=== PATIENT | male | born 1990 | race Caucasian/White ===

== ENCOUNTER → 2020-10-15 | Outpatient (CLI) | payer BC ==
[2020-10-15 10:18] LABS: Basophils % (A) 1 %; Eosinophils # (A) 0.2 k/uL (0-0.7); Eosinophils % (A) 3 %; HCT 44.8 % (39.0-53.0); HGB 14.9 gm/dL (13.0-17.5); Lymphocytes # (A) 1.6 k/uL (1.0-4.8); Lymphocytes % (A) 31 %; MCHC 33.1 g/dL (31.0-37.0); MCV 84.5 fL (80.0-100.0); Mean Platelet Volume 7.6; Monocytes # (A) 0.3 k/uL (0-1.0); Monocytes % (A) 6 %; Neutrophils % (A) 57 %; Platelet Count 195 k/uL (150-450); RDW 12.1 % (11.5-15.5); WBC 5.2 k/uL (3.8-10.6)
[2020-10-15 11:22] LABS: Erythrocyte Sedimentation Rate 3 mm/hr (0-15)
[2020-10-15 16:12] LABS: Cyclic Citrull Pep IgG Unit 0.5 U/mL; Cyclic Citrullinated Pep IgG NEGATIVE (NEGATIVE)
[2020-10-15 17:29] LABS: Hemoglobin A1C 5.4 % (4.0-6.0)
[2020-10-15 19:57] LABS: ALT 32 U/L (10-49); AST 26 U/L (14-35); Albumin/Globulin Ratio 2.04 (1.60-3.17); Alkaline Phosphatase 54 U/L (41-126); C Reactive Protein <0.4 mg/dL (0.0-0.8); Calcium 9.4 mg/dL (8.7-10.3); Chloride 104 mmol/L (96-109); Chol/HDL Ratio 3.88; Cholesterol 225 mg/dL (0-200); Globulin 2.3 g/dL (1.6-3.3); Glucose 86 mg/dL (70-110); LDL Cholesterol,Calculated 142.2 mg/dL (0.0-131.0); Non-African American GFR(CKD) 66.5 (60.0-200.0); Potassium 4.4 mmol/L (3.5-5.5); Rheumatoid Factor, Qnt 8 IU/mL (0-15); Sodium 138 mmol/L (135-145); Total Bilirubin 0.8 mg/dL (0.2-1.2)
== END | disposition home or self-care (01) ==
LOC: LABWHC1 09:43
PROVIDERS: ATTEND Family Medicine
DX: Z00.01 Encounter for general adult medical examination with abnormal findings (principal); E78.5 Hyperlipidemia, unspecified; M25.521 Pain in right elbow
CPT/HCPCS: 36415; 80053; 80061; 83036; 84439; 84443; 85025; 85652; 86038; 86140; 86200; 86431

== ENCOUNTER → 2021-02-09 | Outpatient (CLI) | payer BC ==
[2021-02-09 15:21] LABS: Basophils # (A) 0.04 X 10*3/uL (0.00-0.10); Basophils % (A) 0.9 %; Eosinophils # (A) 0.17 X 10*3/uL (0.04-0.35); Eosinophils % (A) 3.9 %; HCT 44.2 % (39.6-50.0); HGB 14.4 g/dL (13.0-17.0); Lymphocytes # (A) 1.69 X 10*3/uL (0.90-5.00); Lymphocytes % (A) 38.4 %; MCH 27.7 pg (27.0-32.0); MCHC 32.6 g/dL (32.0-37.0); MCV 85.2 fL (80.0-97.0); Mean Platelet Volume 11.4 fL (9.5-12.2); Monocytes # (A) 0.42 X 10*3/uL (0.20-1.00); Monocytes % (A) 9.5 %; Neutrophils # (A) 2.04 X 10*3/uL (1.80-7.70); Neutrophils % (A) 46.4 %; Platelet Count 203 X 10*3/uL (140-440); RBC 5.19 X 10*6/uL (4.40-5.60); RDW 11.9 % (11.5-14.5)
[2021-02-09 19:26] LABS: African American GFR (CKD) 92.8 (60.0-200.0); Albumin 4.6 g/dL (3.80-4.90); Anion Gap 11.4 mmol/L (4.00-12.00); Calcium 9.4 mg/dL (8.7-10.3); Carbon Dioxide 25.6 mmol/L (21.6-31.8); Chol/HDL Ratio 4.65; Globulin 2.3 g/dL (1.6-3.3); Non-African American GFR(CKD) 80.1 (60.0-200.0); Potassium 4.2 mmol/L (3.5-5.5); Total Bilirubin 0.9 mg/dL (0.2-1.2); Total Protein 6.9 g/dL (6.2-8.2)
== END | disposition home or self-care (01) ==
LOC: LABWHC1 07:53
PROVIDERS: ATTEND Family Medicine
DX: E78.5 Hyperlipidemia, unspecified (principal)
CPT/HCPCS: 36415; 80053; 80061; 85025

== ENCOUNTER → 2021-07-31 | Outpatient (CLI) | payer BC ==
[2021-07-31 11:50] LABS: Basophils # (A) 0.05 X 10*3/uL (0.00-0.10); Basophils % (A) 0.9 %; Eosinophils # (A) 0.13 X 10*3/uL (0.04-0.35); Eosinophils % (A) 2.3 %; HCT 45.6 % (39.6-50.0); Lymphocytes % (A) 28.5 %; MCHC 32.9 g/dL (32.0-37.0); MCV 85.1 fL (80.0-97.0); Mean Platelet Volume 10.7 fL (9.5-12.2); Monocytes % (A) 8.9 %; Neutrophils % (A) 58.9 %; Platelet Count 203 X 10*3/uL (140-440); RBC 5.36 X 10*6/uL (4.40-5.60); RDW 11.7 % (11.5-14.5); WBC 5.61 X 10*3/uL (4.50-10.00)
[2021-07-31 13:03] LABS: LDL Cholesterol,Calculated 79.7 mg/dL (0.0-131.0); VLDL Calculation 18.1 mg/dL (5.00-40.00)
[2021-07-31 19:38] LABS: African American GFR (CKD) 128.5 (60.0-200.0); Albumin 4.6 g/dL (3.8-4.9); Albumin/Globulin Ratio 1.97 (1.60-3.17); Anion Gap 11.7 mmol/L (4.00-12.00); BUN/Creat Ratio 20.5 Ratio (12.00-20.00); Blood Urea Nitrogen 18.8 mg/dL (9.0-27.0); Calcium 9.2 mg/dL (8.7-10.3); Chol/HDL Ratio 2.71 Ratio; Globulin 2.3 g/dL (1.6-3.3); HDL Cholesterol 57.2 mg/dL (40.00-60.00); Non-African American GFR(CKD) 110.9 (60.0-200.0); Potassium 4.6 mmol/L (3.5-5.5); T4, Free (Free Thyroxine) 1.26 ng/dL (0.800-1.800); Total Bilirubin 0.5 mg/dL (0.30-1.20); Total Protein 6.9 g/dL (6.2-8.2); Triglycerides 90.5 mg/dL (0.00-149.00)
== END | disposition home or self-care (01) ==
LOC: LABWHC1 08:54
PROVIDERS: ATTEND Family Medicine
DX: Z00.01 Encounter for general adult medical examination with abnormal findings (principal); E78.5 Hyperlipidemia, unspecified
CPT/HCPCS: 36415; 80053; 80061; 83036; 84439; 84443; 85025

== ENCOUNTER → 2022-10-20 | Outpatient (CLI) | payer BC ==
--- NOTE | 2022-10-20 09:30 | MR ---
EXAMINATION TYPE: MR lumbar spine wo con DATE OF EXAM: 10/20/2022 COMPARISON: NONE HISTORY: LOW BACK PAIN for 4 to 5 years. TECHNIQUE: Multiplanar, multisequence imaging of the lumbar spine is performed without IV contrast. FINDINGS: Sagittal images of the lumbar spine show vertebral body heights and alignment to appear sat isfactory. The intervertebral discs demonstrate normal heights and hydration. The conus medullaris i s normal in position and signal ending at superior L1 level. The bone marrow signal intensity is wit hin normal limits. Axial images show mild facet arthropathy L3-L4 through the L5-S1 levels. Spinal canal is preserved. B ilateral neural foramina remain patent. No large disc herniation on axial images. Paraspinal muscle b ulk is maintained. IMPRESSION: Mild facet arthropathy in the mid to lower lumbar spine. No significant focal disc hernia tion.
== END | disposition home or self-care (01) ==
LOC: RADMRIMAIN 08:06
PROVIDERS: ATTEND Family Medicine
DX: M47.816 Spondylosis without myelopathy or radiculopathy, lumbar region (principal)
CPT/HCPCS: 72148

== ENCOUNTER → 2023-03-14 | Outpatient (CLI) | payer BC ==
[2023-03-14 14:19] LABS: ALT 53 U/L (10-49); AST 32 U/L (14-35); Albumin 4.4 g/dL (3.8-4.9); Albumin/Globulin Ratio 2.06 (1.60-3.17); Alkaline Phosphatase 58 U/L (41-126); BUN/Creat Ratio 17.87 Ratio (12.00-20.00); Blood Urea Nitrogen 19.3 mg/dL (9.0-27.0); Calcium 9.4 mg/dL (8.7-10.3); Carbon Dioxide 25.2 mmol/L (20.0-27.5); Chloride 107 mmol/L (96-109); Chol/HDL Ratio 2.15 Ratio; Globulin 2.1 g/dL (1.6-3.3); Glucose 79 mg/dL (70-110); LDL Cholesterol,Calculated 51.6 mg/dL (0.0-131.0); Non-African American GFR(CKD) 89.7 (60.0-200.0); Potassium 4.3 mmol/L (3.5-5.5); Sodium 143 mmol/L (135-145); Total Protein 6.5 g/dL (6.2-8.2); VLDL Calculation 11.06 mg/dL (5.00-40.00)
== END | disposition home or self-care (01) ==
LOC: LABWHC1 07:20
PROVIDERS: ATTEND Family Medicine
DX: E78.5 Hyperlipidemia, unspecified (principal)
CPT/HCPCS: 36415; 80053; 80061

== ENCOUNTER → 2023-11-02 | Outpatient (CLI) | payer OTHER ==
[2023-11-02 11:14] LABS: Basophils # (A) 0.04 X 10*3/uL (0.00-0.10); Basophils % (A) 0.9 %; Eosinophils # (A) 0.18 X 10*3/uL (0.04-0.35); HCT 44.9 % (39.6-50.0); HGB 14.6 g/dL (13.0-17.0); Lymphocytes # (A) 1.79 X 10*3/uL (0.90-5.00); Lymphocytes % (A) 39.9 %; MCH 27.7 pg (27.0-32.0); MCHC 32.5 g/dL (32.0-37.0); Mean Platelet Volume 10.8 FL (9.5-12.2); Monocytes # (A) 0.42 X 10*3/uL (0.20-1.00); Monocytes % (A) 9.4 %; NRBC Per 100 WBC 0 X 10*3/uL (0.00-0.01); Neutrophils # (A) 2.04 X 10*3/uL (1.80-7.70); Neutrophils % (A) 45.4 %; Platelet Count 218 X 10*3/uL (140-440); RBC 5.28 X 10*6/uL (4.40-5.60); RDW 11.7 % (11.5-14.5); WBC 4.49 X 10*3/uL (4.50-10.00)
[2023-11-02 11:40] LABS: ALT 30 U/L (10-49); AST 27 U/L (14-35); Albumin 4.6 g/dL (3.8-4.9); Albumin/Globulin Ratio 1.77 Ratio (1.60-3.17); Alkaline Phosphatase 63 U/L (41-126); Calcium 9.6 mg/dL (8.7-10.3); Carbon Dioxide 28.6 mmol/L (21.6-31.8); Chloride 101 mmol/L (96-109); Chol/HDL Ratio 2.84 Ratio; Globulin 2.6 g/dL (1.6-3.3); Glucose 93 mg/dL (70-110); LDL Cholesterol,Calculated 112.2 mg/dL (0.0-131.0); Potassium 4.7 mmol/L (3.5-5.5); Sodium 139 mmol/L (135-145); T4, Free (Free Thyroxine) 1.22 ng/dL (0.80-1.80); Total Bilirubin 0.5 mg/dL (0.3-1.2); Total Protein 7.2 g/dL (6.2-8.2); VLDL Calculation 14.86 mg/dL (5.00-40.00)
== END | disposition home or self-care (01) ==
LOC: LABWHC1 08:35
PROVIDERS: ATTEND Family Medicine
DX: Z00.01 Encounter for general adult medical examination with abnormal findings (principal); E78.5 Hyperlipidemia, unspecified; R73.03 Prediabetes
CPT/HCPCS: 36415; 80053; 80061; 83036; 83525; 84439; 84443; 85025

== ENCOUNTER → 2024-10-05 | Outpatient (CLI) | payer OTHER ==
[2024-10-05 13:30] LABS: Basophils % (A) 1.6 %; Eosinophils # (A) 0.25 X 10*3/uL (0.04-0.35); Eosinophils % (A) 3.9 %; HCT 44.4 % (39.6-50.0); HGB 14.8 g/dL (13.0-17.0); Lymphocytes # (A) 2.61 X 10*3/uL (0.90-5.00); Lymphocytes % (A) 41.1 %; MCH 27.3 pg (27.0-32.0); MCHC 33.3 g/dL (32.0-37.0); MCV 81.9 FL (80.0-97.0); Mean Platelet Volume 10.3 FL (9.5-12.2); Monocytes # (A) 0.47 X 10*3/uL (0.20-1.00); Monocytes % (A) 7.4 %; NRBC Per 100 WBC 0 X 10*3/uL (0.00-0.01); Neutrophils # (A) 2.77 X 10*3/uL (1.80-7.70); Neutrophils % (A) 43.6 %; Platelet Count 246 X 10*3/uL (140-440); RBC 5.42 X 10*6/uL (4.40-5.60); RDW 11.9 % (11.5-14.5); WBC 6.35 X 10*3/uL (4.50-10.00)
[2024-10-05 13:50] LABS: ALT 24 U/L (10-49); AST 19 U/L (14-35); Albumin 4.4 g/dL (3.8-4.9); Albumin/Globulin Ratio 1.69 Ratio (1.60-3.17); Alkaline Phosphatase 56 U/L (41-126); Blood Urea Nitrogen 14.2 mg/dL (9.0-27.0); Calcium 9.6 mg/dL (8.7-10.3); Carbon Dioxide 26.8 mmol/L (21.6-31.8); Chloride 104 mmol/L (96-109); Chol/HDL Ratio 4.03 Ratio; Globulin 2.6 g/dL (1.6-3.3); Glucose 88 mg/dL (70-110); LDL Cholesterol,Calculated 99.1 mg/dL (0.0-131.0); Potassium 4.9 mmol/L (3.5-5.5); Sodium 141 mmol/L (135-145); T4, Free (Free Thyroxine) 1.51 ng/dL (0.80-1.80); Total Bilirubin 0.4 mg/dL (0.3-1.2)
== END | disposition home or self-care (01) ==
LOC: LABWHC1 08:05
PROVIDERS: ATTEND Nurse Practitioner Family
DX: Z00.00 Encounter for general adult medical examination without abnormal findings (principal); E78.5 Hyperlipidemia, unspecified; R73.03 Prediabetes
CPT/HCPCS: 36415; 80053; 80061; 83036; 84439; 84443; 85025

== ENCOUNTER → 2025-03-13 | Outpatient (CLI) | payer BC ==
--- NOTE | 2025-03-13 08:54 | CT ---
EXAMINATION TYPE: CT sinus wo con DATE OF EXAM: 03/13/2025 6:52 AM COMPARISON: None CLINICAL INDICATION: Male, 34 years old with history of J32.9 CHRONIC SINUSITIS; , Sinus pressure and congestion x 1 year TECHNIQUE: Multiple thin axial images were obtained through the paranasal sinuses. Additional coronal and sagittal reformatted images were submitted for evaluation. Contrast used: none Oral contrast used: none CT DLP: 161 mGycm, Automated exposure control for dose reduction was used. FINDINGS: Frontal sinuses: Normally developed and aerated. Frontal Recess: Clear Maxillary Sinuses: Normally developed and aerated. Retention cyst in inferior maxillary wall measurin g 13 mm. Maxillary Infundibula([facility]): Mild narrowing due to mucosal thickening bilaterally., No Ora cells id entified. Ethmoid sinuses: Normally developed and aerated. Ethmoidal notch: Unprotected bilateral anterior eth moidal arteries. Sphenoid sinuses: Normally developed and aerated. There is sellar sphenoid sinus pneumatization with out evidence of dehiscence. No dehiscence of carotid canal. No evidence of optic nerve dehiscence wi thin the sphenoid sinus. Sphenoethmoidal recesses: Clear. Nasal septum: Relatively straight and midline. There is mild mucosal thickening. Nasal Turbinates: The mucosal thickening of the left middle and inferior turbinates greater than righ t. Mastoid air cells & middle ears: The air cells are clear. The middle ears are grossly unremarkable. Modified Soft tissues & Brain: Partially seen without gross abnormality. Globes are intact. Other: Cribriform plate demonstrates symmetric Keros classification type 2 cribriform plate. No evidence of bony dehiscence of skull base. Lamina papyracea is intact without evidence of remote orbital fracture or orbital prolapse into the e thmoid sinus. IMPRESSION: 1. Minimal paranasal sinus disease 2. The ostiomeatal units, frontonasal and sphenoethmoidal recesses are clear. [facility], , 03/13/2025 8:51 AM
--- NOTE | 2025-03-13 08:55 | MR ---
EXAMINATION TYPE: MR ankle LT wo con DATE OF EXAM: 03/13/2025 6:41 AM COMPARISON: No radiographic correlation available CLINICAL INDICATION: Male, 34 years old with history of M25.572 PAIN IN LEFT ANKLE AND JOINTS OF LEFT FOOT, Left Ankle pain, swelling and limited movement TECHNIQUE: Multiplanar, multisequence images of the left ankle were obtained without IV contrast. FINDINGS: There is patchy bone marrow edema within the medial malleolus. On T1 sequence, signal change appears to be localized to the subchondral bone at the medial tibiotalar joint suggesting changes of reactive focal osteoarthrosis. There is anterior and posterior degenerative spurring at the tibiotalar joint on the sagittal series. Small tibiotalar and posterior subtalar joint effusions. Subtalar joint is aligned. Incidentally, there are prominent vascular remnants noted within the body of the calcaneus which is n ormal variation. 1.5 x 0.6 cm ganglion cyst arising from the lateral aspect of the calcaneal cuboidal joint. Smooth delineation to the Achilles tendon. Origin of the plantar fascia is intact. Minimal soft tissu e edema deep to the origin is of questionable clinical significance given the lack of any abnormal th ickening of the fascia. Preserved fatty signal within the sinus Tarsi. The tarsal tunnel is clear. The anterior extensor tendons and syndesmosis appear intact. The ATFL especially at the fibular attachment is not well defined, suspect previous injury. The PTFL and CFL appear intact. There is a short segment interstitial tear involving the infra malleolar acromion is longer is breast and a 1.5 cm, axial image 16 above the level of the peroneal tubercle. Lateral peroneal tendons othe rwise intact. Scattered mild tenosynovial fluid along the posterior tibial tendon. Medial flexor tendons otherwise intact. The deltoid spring ligament complex appears intact though we edema overlying the superomedial ligamen t and the spring ligament complex, axial image 21 and coronal image 16. No acute or healing fracture is seen. IMPRESSION: 1. Underlying tibiotalar joint osteoarthrosis, suspect moderate to severe focal osteoarthritic change medially given the degree of reactive subchondral marrow edema here. 2. A short segment interstitial tear of the inframalleolar peroneus longus for a span of 1.5 cm. No r etracted tear. 3. Suspect old injury to the ATFL. The fibular attachment is diminutive and not well seen. 4. Low-grade sprain superomedial ligament of the spring ligament complex. Mild posterior tibial tenos ynovitis. 5. A 1.5 x 0.6 cm ganglion cyst arising from the lateral aspect of the calcaneocuboid joint. [facility], Workstation: [id number] [id number], 03/13/2025 8:52 AM
== END | disposition home or self-care (01) ==
LOC: RADMRIMAIN 05:58
PROVIDERS: ATTEND Family Medicine
DX: S93.402A Sprain of unspecified ligament of left ankle, initial encounter (principal); J32.9 Chronic sinusitis, unspecified; J34.89 Other specified disorders of nose and nasal sinuses; M19.072 Primary osteoarthritis, left ankle and foot; M65.972 Unspecified synovitis and tenosynovitis, left ankle and foot; M67.472 Ganglion, left ankle and foot; X58.XXXA Exposure to other specified factors, initial encounter
CPT/HCPCS: 70486